=== PATIENT | female | born 2000 | race Caucasian/White ===

== ENCOUNTER 2024-12-09 17:30 | Emergency (ER) | payer OTHER ==
[~2024-12-09] VITALS: Ht 157.5 cm; Wt 59.0 kg
[2024-12-09 17:41] VITALS: BP 129/64; PULSE 83; RESP 16; O2SAT 100
[2024-12-09 19:39] VITALS: TEMP 98.3
== END 2024-12-09 19:40 | disposition home or self-care (01) ==
LOC: ER 17:31
DX: R00.2 Palpitations (principal)
CPT/HCPCS: 93005; 99283

== ENCOUNTER → 2025-01-26 | Outpatient (CLI) | payer OTHER ==
--- NOTE | 2025-01-26 19:15 | RADIOLOGY REPORT ---
EXAM: DI UNI RIBS WITH PA CHEST INDICATION: COSTOCHONDRITI TECHNIQUE: 3 views of the right ribs COMPARISON: None FINDINGS: No radiographic evidence of an acute osseous abnormality. There is no acute fracture, osseous malalig nment, or aggressive focal osseous lesion. There is no radiographically apparent joint space narrowin g. IMPRESSION: 1. No radiographic evidence of an acute osseous abnormality.
== END | disposition home or self-care (01) ==
LOC: RAD 15:09
PROVIDERS: ATTEND Family Medicine
DX: M94.0 Chondrocostal junction syndrome [Tietze] (principal)
CPT/HCPCS: 71101